=== PATIENT | female | born 1970 | race Two or more races ===

== ENCOUNTER 2017-10-10 08:50 | Emergency (ER) | payer BC, OTHER ==
[~2017-10-10] VITALS: Ht 157.5 cm; Wt 79.4 kg
[~2017-10-10 08:50] MED LIST: ALBU1.257; AMLO10CA42 PO; FLUT250M2; HCTZ25T; PANT40T PO
[2017-10-10 09:09] VITALS: BP 142/98
[2017-10-10] MEDS ORDERED: methylPREDNISolone SOD SUCC 125 MG/2 ML VL IM ONE (10:45)
[2017-10-10] MEDS ORDERED: KETOROLAC TROMETH 60MG/2ML VIAL IM ONE (10:45)
== END 2017-10-10 11:11 | disposition home or self-care (01) ==
LOC: ER 08:50
DX: J01.01 Acute recurrent maxillary sinusitis (principal); J45.909 Unspecified asthma, uncomplicated; F17.210 Nicotine dependence, cigarettes, uncomplicated
CPT/HCPCS: 70450; 96372; 99284; J1885; J2930

== ENCOUNTER 2019-06-05 09:26 | Emergency (ER) | payer OTHER ==
[~2019-06-05] VITALS: Ht 157.5 cm; Wt 83.9 kg
[~2019-06-05 09:26] MED LIST changes: +AMLO10CA33 PO; -AMLO10CA42 PO
[2019-06-05] MEDS ORDERED: SODIUM CHLORIDE 0.9% 1,000 ML IVB ONE (09:56)
[2019-06-05 10:01] LABS: Basophils # (auto) 0.1 uL; Basophils % (auto) 1.4 % (0.0-2.0); Eosinophils # (auto) 0.5 uL; Hematocrit 41.2 % (36.0-46.0); Lymphocytes # (auto) 2.1 uL; Lymphocytes % (auto) 24.8 % (10.0-50.0); Mean Corpuscular Hemoglobin 29.7 pg (28.0-32.0); Mean Corpuscular Volume 87.3 fL (80.0-100.0); Monocytes # (auto) 0.6 uL; Monocytes % (auto) 7.2 % (0.0-12.0); Neutrophils # (auto) 5.2 uL; Neutrophils % (auto) 60.6 % (37.0-80.0); Nucleated Red Blood Cells % 0.1 %; Platelet Count (auto) 306 10^3/uL (140-450); Red Blood Cells 4.71 10^6/uL (4.0-5.20); Red Cell Distribution Width 14.1 % (11.8-14.3); White Blood Cell 8.5 10^3/uL (4.4-10.8)
[2019-06-05 10:15] LABS: Albumin 3.8 g/dL (3.4-5.0); BUN/Creatinine Ratio 16.7; Calcium 8.6 mg/dL (8.5-10.1)
[2019-06-05 10:17] LABS: Bilirubin, Total 0.6 mg/dL (0.2-1.0)
[2019-06-05 10:21] LABS: Potassium 2.9 mmol/L (3.5-5.1)
[2019-06-05] MEDS ORDERED: POTASSIUM CHL 20MEQ/100ML 100 ML IV ONE (11:00)
[2019-06-05 12:39] LABS: Urine Bacteria FEW /hpf (None Seen); Urine Blood 1+ /uL (Negative); Urine Mucus FEW (None Seen); Urine Specific Gravity 1.013 (1.001-1.035); Urine WBC <1 /hpf (0 - 5)
[2019-06-05] MEDS ORDERED: SODIUM CHLORIDE 0.9% 1,000 ML IV ONE (14:30)
[2019-06-05 15:20] VITALS: BP 137/86
== END 2019-06-05 15:30 | disposition home or self-care (01) ==
LOC: ER 09:29
DX: E86.0 Dehydration (principal); E87.6 Hypokalemia; R19.7 Diarrhea, unspecified; J45.909 Unspecified asthma, uncomplicated; I10 Essential (primary) hypertension; Z88.6 Allergy status to analgesic agent; Z88.8 Allergy status to other drugs, medicaments and biological substances
CPT/HCPCS: 36415; 74176; 80053; 81001; 81025; 85025; 94761; 96361; 96365; 99284; J3480; J7030

== ENCOUNTER 2019-06-22 09:40 | Emergency (ER) | payer OTHER ==
[~2019-06-22] VITALS: Ht 157.5 cm; Wt 81.6 kg
[2019-06-22] MEDS ORDERED: ALBUTEROL SULF 2.5 MG/0.5ML(0.5%) NEB SOLN HHN ONE (10:00)
[2019-06-22] MEDS ORDERED: SODIUM CHLORIDE 0.9% 1,000 ML IV ONE (10:00)
[2019-06-22] MEDS ORDERED: IPRATROPIUM BROM 0.5 MG/2.5ML INH SOL HHN ONE (10:00)
[2019-06-22] MEDS ORDERED: methylPREDNISolone SOD SUCC 125 MG/2 ML VL IV ONE (10:00)
[2019-06-22 10:30] VITALS: BP 105/71
[2019-06-22 10:45] LABS: Basophils # (auto) 0.1 uL; Basophils % (auto) 1.3 % (0.0-2.0); Eosinophils # (auto) 0.5 uL; Eosinophils % (auto) 6.5 % (0.0-7.0); Hematocrit 41.7 % (36.0-46.0); Hemoglobin 13.9 g/dL (12.2-16.2); Lymphocytes # (auto) 1.8 uL; Lymphocytes % (auto) 24.9 % (10.0-50.0); Mean Corpuscular Hemoglobin 29.4 pg (28.0-32.0); Mean Corpuscular Hgb Conc. 33.3 g/dL (32.0-36.0); Mean Corpuscular Volume 88.1 fL (80.0-100.0); Monocytes # (auto) 0.6 uL; Monocytes % (auto) 8.2 % (0.0-12.0); Neutrophils # (auto) 4.2 uL; Neutrophils % (auto) 59.1 % (37.0-80.0); Nucleated Red Blood Cells % 0.1 %; Platelet Count (auto) 295 10^3/uL (140-450); Red Blood Cells 4.73 10^6/uL (4.0-5.20); Red Cell Distribution Width 14.2 % (11.8-14.3); White Blood Cell 7.1 10^3/uL (4.4-10.8)
[2019-06-22 11:06] LABS: Albumin 3.5 g/dL (3.4-5.0); BUN/Creatinine Ratio 12.2; Calcium 8.9 mg/dL (8.5-10.1); Potassium 3.7 mmol/L (3.5-5.1)
[2019-06-22 11:08] LABS: Bilirubin, Total 0.7 mg/dL (0.2-1.0); Total Protein 8.1 g/dL (6.4-8.2)
== END 2019-06-22 13:03 | disposition home or self-care (01) ==
LOC: ER 09:40
DX: J45.909 Unspecified asthma, uncomplicated (principal); I10 Essential (primary) hypertension
CPT/HCPCS: 36415; 71045; 80053; 85025; 94644; 96374; 99285; J2930; J7611; J7644

== ENCOUNTER 2021-08-22 04:45 | Emergency (ER) | payer BC, OTHER ==
[~2021-08-22] VITALS: Ht 160 cm; Wt 78.0 kg
[~2021-08-22 04:45] MED LIST changes: -HCTZ25T; +HYDR25TA5
[2021-08-22] MEDS ORDERED: amLODIPine BESYLATE 5 MG TAB PO ONE (06:45)
[2021-08-22] MEDS ORDERED: methylPREDNISolone SOD SUCC 125 MG/2 ML VL IV ONE (07:45)
[2021-08-22] MEDS ORDERED: ALBUTEROL SULF 2.5 MG/0.5ML(0.5%) NEB SOLN NEB ONE (07:45)
[2021-08-22] MEDS ORDERED: IPRATROPIUM BROM 0.5 MG/2.5ML INH SOL NEB ONE (07:45)
[2021-08-22] MEDS ORDERED: LEVO-28 PO (14:18)
[2021-08-22] MEDS ORDERED: METH4PAK PO (14:18)
[2021-08-22 15:06] VITALS: BP 190/117
== END 2021-08-22 16:00 | disposition home or self-care (01) ==
LOC: ER 04:45
DX: J45.901 Unspecified asthma with (acute) exacerbation (principal); I10 Essential (primary) hypertension; F17.210 Nicotine dependence, cigarettes, uncomplicated; Z90.49 Acquired absence of other specified parts of digestive tract; Z90.89 Acquired absence of other organs; Z20.822 Contact with and (suspected) exposure to COVID-19
CPT/HCPCS: 36415; 71045; 87426; 93005; 94640; 96374; 99285; J2930

== ENCOUNTER 2022-01-21 19:55 | Emergency (ER) | payer BC ==
[~2022-01-21] VITALS: Ht 160 cm; Wt 74.8 kg
[2022-01-21 19:55] VITALS: BP 138/83
[~2022-01-21 19:55] MED LIST changes: +LEVO-28 PO; +METH4PAK PO
== END 2022-01-21 23:22 | disposition home or self-care (01) ==
LOC: ER 19:55
DX: S91.311A Laceration without foreign body, right foot, initial encounter (principal); J45.909 Unspecified asthma, uncomplicated; I10 Essential (primary) hypertension; F17.210 Nicotine dependence, cigarettes, uncomplicated; Z90.89 Acquired absence of other organs; Z90.49 Acquired absence of other specified parts of digestive tract; Z88.6 Allergy status to analgesic agent; Z88.8 Allergy status to other drugs, medicaments and biological substances; W25.XXXA Contact with sharp glass, initial encounter; Y93.89 Activity, other specified; Y92.89 Other specified places as the place of occurrence of the external cause; Y99.8 Other external cause status
CPT/HCPCS: 12001

== ENCOUNTER 2023-10-12 17:33 | Emergency (ER) | payer BC ==
[~2023-10-12] VITALS: Ht 160 cm; Wt 78.7 kg
[~2023-10-12 17:33] MED LIST changes: -AMLO10CA33 PO; +AMLO1CAP56 PO; -LEVO-28 PO; +LEVO500T91 PO
[2023-10-12] MEDS ORDERED: DICYCLOMINE HCL (10MG/ML) 2 ML AMPULE IM ONE (19:00)
[2023-10-12] MEDS ORDERED: ONDANSETRON HCL 4 MG/2 ML VIAL IM ONE (19:00)
[2023-10-12 19:36] LABS: Basophils # (auto) 0.2 10 ^3/uL (0-0.2); Basophils % (auto) 1.5 % (0.0-2.0); Eosinophils # (auto) 1.9 10 ^3/uL (0-0.8); Eosinophils % (auto) 14.7 % (0.0-7.0); Hematocrit 44.3 % (36.0-46.0); Hemoglobin 15.6 g/dL (12.2-16.2); Lymphocytes # (auto) 3.1 10 ^3/uL (0.4-5.4); Lymphocytes % (auto) 23.8 % (10.0-50.0); Mean Corpuscular Hgb Conc. 35.3 g/dL (32.0-36.0); Mean Corpuscular Volume 96.5 fL (80.0-100.0); Monocytes # (auto) 0.7 10 ^3/uL (0-1.3); Monocytes % (auto) 5.2 % (0.0-12.0); Neutrophils # (auto) 7.2 10 ^3/uL (1.6-8.6); Neutrophils % (auto) 54.8 % (37.0-80.0); Red Blood Cells 4.59 10^6/uL (4.0-5.20); Red Cell Distribution Width 12.7 % (11.8-14.3); White Blood Cell 13.1 10^3/uL (4.4-10.8)
[2023-10-12 19:44] LABS: Chloride 98 mmol/L (98-107); Potassium 2.8 mmol/L (3.5-5.1); Sodium 135 mmol/L (136-145)
[2023-10-12 19:45] LABS: Carbon Dioxide 29 mmol/L (20-30)
[2023-10-12 19:50] LABS: BUN/Creatinine Ratio 10.6 (10.0-20.0); Blood Urea Nitrogen 7 mg/dL (9-23); Glucose 152 mg/dL (74-106)
[2023-10-12 19:51] LABS: Lipase 35 U/L (12-53)
[2023-10-12 20:00] VITALS: BP 152/94; PULSE 81; RESP 18; TEMP 97.7; O2SAT 98
[2023-10-12 20:10] LABS: Anion Gap 8 (5-15)
[2023-10-12 20:34] LABS: Urine Bacteria FEW /hpf (None Seen); Urine Blood Negative /uL (Negative); Urine Clarity HAZY (Clear); Urine Color Yellow (Yellow); Urine Mucus FEW (None Seen); Urine Protein, UAD Negative (Negative); Urine Specific Gravity 1.022 (1.001-1.035); Urine Urobilinogen Normal (Negative); Urine WBC 4 /hpf (0 - 5); Urine pH 7.5 (5.0-8.0)
== END 2023-10-12 20:39 | disposition left against medical advice (07) ==
LOC: ER 17:33
DX: R10.33 Periumbilical pain (principal); R11.2 Nausea with vomiting, unspecified; R19.7 Diarrhea, unspecified; Z53.21 Procedure and treatment not carried out due to patient leaving prior to being seen by health care provider
CPT/HCPCS: 36415; 80048; 81001; 83690; 85025

== ENCOUNTER 2024-09-02 07:08 | Emergency (ER) | payer BC ==
[~2024-09-02] VITALS: Ht 157.5 cm; Wt 74.2 kg
--- NOTE | 2024-09-02 07:55 | ED.PDOC ---
Musculoskeletal HPI Comments 53Y F with PMHx DM, HTN, and asthma presents to ED for chief complaint left shoulder pain s/p fall. Pt states she was walking her dog when it suddenly ran and caused her to fall on her back. No LOC. Pt denies chest pain, SOB, and all other symptoms. Current pain level 05/14. Chief Complaint: Fall Injury Time Seen by MD: 07:45 Primary Care Provider: Flynn Reviewed Notes: Nurses Notes, Medications, Allergies Allergies: Coded Allergies: Acetaminophen (Verified Allergy, Unknown, 06/05/19) Hydrocodone (Verified Allergy, Unknown, 06/05/19) Ibuprofen (Verified Allergy, Unknown, 06/05/19) Home Meds Active Scripts Levofloxacin Hemihydrate (LEVOFLOXACIN) 500 Mg Tab, 500 MG PO DAILY for 7 Days, #7 MG Prov:SONA PADGETT MD 08/22/21 Methylprednisolone (Medrol Dosepak) 4 Mg Salvatore, 4 MG PO UD for 10 Days, #21 TAB UAD Prov:SONA PADGETT MD 08/22/21 Pantoprazole Sodium Sesquihydr (Pantoprazole Sodium) 40 Mg Tab, 40 MG PO BID, #60 TAB Prov:GOGO HAMM MD 06/04/16 Reported Medications Amlodipine Besylate-Benazepril (AMLODIPINE BESYLATE/BENAZ) 1 Cap Cap, 1 CAP PO DAILY, #30 CAP 5 Refills 06/01/16 Fluticasone-Salmeterol (Advair Diskus 250/50) 1 Puff Ih, #60 06/01/16 Hctz (Hydrochlorothiazide) 25 Mg Tab, #90 06/01/16 Albuterol Sulfate (Albuterol Sulfate) 1.25MG/3 Neb, #150 06/01/16 Information Source: Patient Mode of Arrival: Wheelchair Location: Left Extremity Location: Shoulder Timing: Hours Severity: Mild Able to Move Extremity: No Bear Weight: No Pain: Moderate Mechanism: Other Circumstances: Fall Onset of Symptoms: After Trauma Symptoms: Pain DVT Risk Factors: NONE Associated signs and symptoms: Shoulder pain (left) Past Medical History PAST MEDICAL HISTORY: Asthma, DM, HTN Surgical History: Appendectomy, Cholecystectomy HEAD DOFFER History: Denies all HEAD DOFFER Hx Family History Family History: Family hx of DM, Family hx of Cancer, Family hx of heart mari Social History Smoker: Cigarettes, Less Than 1 Pack/Day Alcohol: Occasionally Drugs: Denies Drug Use Lives In: Home Constitutional: denies: chills, diaphoresis, fatigue, fever, malaise, sweats, weakness, others EENTM: denies: blurred vision, double vision, ear bleeding, ear discharge, ear drainage, ear pain, ear ringing, eye pain, eye redness, hearing loss, mouth pain, mouth swelling, nasal discharge, nose bleeding, nose congestion, nose pain, photophobia, tearing, throat pain, throat swelling, voice changes, others Respiratory: denies: cough, hemoptysis, orthopnea, SOB at rest, shortness of breath, SOB with excertion, stridor, wheezing, others Cardiovascular: denies: chest pain, dizzy spells, diaphoresis, Dyspnea on exertion, edema, irregular heart beat, left arm pain, lightheadedness, palpitations, PND, syncope, others Gastrointestinal: denies: abdomen distended, abdominal pain, blood streaked bowels, constipated, diarrhea, dysphagia, difficulty swallowing, hematemesis, m maurice, nausea, poor appetite, poor fluid intake, rectal bleeding, rectal pain, vomiting, others Genitourinary: denies: abnormal vagina bleeding, burning, dyspareunia, dysuria, flank pain, frequency, hematuria, incontinence, pain, , vagina discharge, urgency, others Neurological: denies: dizziness, fainting, headache, left sided numbness, left sided weakness, numbness, paresthesia, pre-existing deficit, right sided numbness, right sided weakness, seizure, speech problems, tingling, tremors, weakness, others Musculoskeletal: reports: others (lt shoulder pain); denies: back pain, gout, joint pain, joint swelling, muscle pain, muscle stiffness, neck pain Integumetry: denies: bruises, change in color, change in hair/nails, dryness, laceration, lesions, lumps, rash, wounds, others Allergic/Immunocompromised: denies: Difficulty Healing, Frequent Infections, Hives, Itching, others Hematologic/Lymphatic: denies: anemia, blood clots, easy bleeding, easy bruising, swollen glands, others Endocrine: denies: excessive hunger, excessive sweating, excessive thirst, excessive urination, flushing, intolerance to cold, intolerance to heat, unexplained weight gain, unexplained weight loss, others Psychiatric: denies: anxiety, bipolar disorder, depression, hopeless, panic disorder, schizophrenia, sleepless, suicidal, others All Other Systems: Reviewed and Negative Physical Exam General Appearance: Moderate Distress, Normal HEENT: Normal ENT Inspection, Pharynx Normal, TMs Normal Neck: Full Range of Motion, Non-Tender, Normal, Normal Inspection Respiratory: Chest Non-Tender, Lungs Clear, No Accessory Muscle Use, No Respiratory Distress, Normal Breath Sounds Cardiovascular: No Edema, No JVD, No Murmur, No Gallop, Normal Peripheral Pulses, Regular Rate/Rhythm Breast Exam: Deferred Gastrointestinal: No Organomegaly, Non Tender, No Pulsatile Mass, Normal Bowel Sounds, Soft Genitalia: Deferred Pelvic: Deferred Rectal: Deferred Extremities: Decreased range of motion (Upper extremity), No calf tenderness, Normal capillary refill, Non-tender, No pedal edema Musculoskeletal : Apperance: Normal Neurologic: Alert, senior net programmer II-XII nml as Tested, No Motor Deficits, Normal Affect, Normal Mood, No Sensory Deficits Cerebellar Function: Normal Reflexes: Normal Skin: Dry, Normal Color, Warm Peripheral Pulses: 3+ Radial (R), 3+ Radial (L) Lymphatic: No Adenopathy Was a procedure done? Was a procedure done?: No Differential Diagnosis EXT Differential Diagnosis: Fracture, Sprain, Dislocation, Strain X-Ray, Labs, Meds, VS Vital Signs Date Time Temp Pulse Resp B/P (MAP) Pulse Ox O2 Delivery O2 Flow Rate FiO2 09/02/24 09:12 82 18 126/76 09/02/24 08:31 84 18 138/86 09/02/24 08:04 97.6 96 14 129/87 (101) 95 09/02/24 08:02 96 14 95 Room Air 09/02/24 08:02 97.6 96 14 129/87 (101) 95 97.6 Current Medications Medications (Trade) Dose Ordered Sig/Mirella Route Start Time Stop Time Status Last Admin Morphine Sulfate 2 mg ONCE ONCE IM 09/02/24 07:45 09/02/24 07:48 DC 09/02/24 08:31 Ondansetron HCl (Zofran Po) 4 mg ONCE ONCE PO 09/02/24 07:45 09/02/24 07:48 DC 09/02/24 08:31 Patient alert. Complaining of left shoulder pain. Vitals stable. Answering all questions. X-ray does show fracture of the humerus. Was given morphine. Was given Zofran. Good pulses. Good skin color. Explained to the patient. Orthopedic consultation. Explained to the patient. Was told to follow up with her primary care physician. Was told to come back if there is any problem. Time of 1ST Reevaluation: 08:15 Reevaluation 1ST: Unchanged Patient Education/Counseling: Diagnosis, Treatment Family Education/Counseling: Diagnosis, Treatment Departure 1 Departure Time of Disposition: 09:45 Impression: Primary Impression: Humerus fracture Qualified Codes: S42.295A - Other nondisplaced fracture of upper end of left humerus, initial encounter for closed fracture Disposition: 01 HOME / SELF CARE / HOMELESS Condition: Good Discharged With: Self Critical Care Note Critical Care Time?: No Stability Stability form required: No Heart Score Heart Score: Heart Score Response (Comments) Value History N/A 0 EKG N/A 0 Age N/A 0 Risk Factors N/A 0 Troponin N/A 0 Total 0 I personally scribed for SONA PADGETT MD ([email or web address]) on 09/02/24 at 07:55. Electronically submitted by Lilly Garcia ([email or web address]). SONA PADGETT MD Sep 02, 2024 07:55
[2024-09-02 08:02] VITALS: TEMP 97.6
[2024-09-02 08:04] VITALS: O2SAT 95
--- NOTE | 2024-09-02 08:22 | DVH ---
EXAM: XY L SHOULDER 2+ VIEW XRAY CLINICAL INDICATION: fall TECHNIQUE: XY L SHOULDER 2+ VIEW XRAY Comparison: None FINDINGS/IMPRESSION: Nondisplaced proximal left humeral shaft fracture.
[2024-09-02] MEDS: ONDANSETRON ODT 4 MG TAB PO ONE (08:31)
[2024-09-02] MEDS: MORPHINE SULFATE INJ 2 MG/ml SYRG IM ONE (08:31)
[2024-09-02 09:12] VITALS: BP 126/76; PULSE 82; RESP 18
--- NOTE | 2024-09-02 09:13 | DVH ---
EXAM: CT HEAD WITHOUT CONTRAST HISTORY: fall COMPARISON: None TECHNIQUE: Axial images were obtained and reformatted in coronal and sagittal planes. All CT scans at this medical facility are performed using dose modulation techniques as appropriate t o a performed exam including the following: Automated exposure control was utilized; adjustment of th e MA and/or KV according to patient size; and use of iterative reconstruction technique. CT Dose: CTDI volume is 65.01 mGy. Dose-length product is 1280.89 mGy*cm FINDINGS: Supratentorial Region: No evidence for large acute territorial ischemia. No intracranial hemorrhage is noted. Posterior Fossa: No acute abnormality. Brainstem: Unremarkable. Sellar/Suprasellar Region: Prominent pituitary gland extending beyond diaphragm sella. Ventricles, Cisterns, Sulci: Age-appropriate. Orbits: Unremarkable. Paranasal Sinuses: Diffuse paranasal sinus mucosal thickening noted. Evidence of prior maxillary an trostomies. Severe mucosal thickening versus polyps in the bilateral nasal cavities occluding the jadon al cavities. Mastoid Air Cells: Unremarkable. Vasculature: Unremarkable. Bones/Soft Tissues: No acute abnormality. Other: None. IMPRESSION: 1. No acute intracranial abnormality. Specifically, no intracranial hemorrhage, calvarial fracture or large scalp hematoma. 2. Mild chronic paranasal sinusitis, status post bilateral maxillary antrostomies. 3. The bilateral nasal cavities are occluded severe mucosal thickening or polyps. Recommend visual in spection an ENT consultation if clinically indicated. 4. Prominent pituitary gland extending beyond diaphragm sella. Suggest further evaluation with [facility] pituitary MRI without and with IV contrast utilizing a dynamic protocol.
== END 2024-09-02 09:42 | disposition home or self-care (01) ==
LOC: ER 07:08
DX: S42.295A Other nondisplaced fracture of upper end of left humerus, initial encounter for closed fracture (principal); I10 Essential (primary) hypertension; E11.9 Type 2 diabetes mellitus without complications; F17.210 Nicotine dependence, cigarettes, uncomplicated; J45.909 Unspecified asthma, uncomplicated; R51.9 Headache, unspecified; Z79.899 Other long term (current) drug therapy; Z90.49 Acquired absence of other specified parts of digestive tract; Z88.5 Allergy status to narcotic agent; Z88.6 Allergy status to analgesic agent; Z88.8 Allergy status to other drugs, medicaments and biological substances; W18.39XA Other fall on same level, initial encounter; Y93.K1 Activity, walking an animal; Y92.89 Other specified places as the place of occurrence of the external cause; Y99.8 Other external cause status
CPT/HCPCS: 70450; 73030; 96372; 99285; J2270; Q0162